=== PATIENT | male | born 1955 | race Caucasian/White ===

== ENCOUNTER 2017-12-23 10:22 | Day surgery (SDC) | payer OTHER ==
[2017-12-23] MEDS: MOXIFLOXACIN 0.5% 3 ML OPH OPER (08:00)
[2017-12-23] MEDS: NEPAFENAC 0.1% 3 ML OPH OPER (11:17)
[2017-12-23] MEDS: PHENYLephrine 10% 5 ML OPH OPER (11:17)
[2017-12-23] MEDS ORDERED: LIDOCAINE 1% (MPF) 10 ML INJ (11:54)
[2017-12-23] MEDS ORDERED: TIMOLOL 0.5% 5 ML OPH (11:54)
[2017-12-23] MEDS ORDERED: EPINEPHrine 1 MG INJ (11:54)
[2017-12-23] MEDS ORDERED: BUPIVACAINE 0.75%/DEXT (SPINAL) 2 ML INJ (11:54)
[2017-12-23] MEDS ORDERED: SODIUM BICARBONATE (IV ADD) 50 ML (11:54)
[2017-12-23] MEDS ORDERED: LIDOCAINE 2% (SDV) 5 ML INJ (11:55)
[2017-12-23 11:58] LABS: ALANINE AMINOTRANSFERASE 22 IU/L (13-69); ALBUMIN 4.8 g/dl (3.3-4.9); ALBUMIN/GLOBULIN RATIO 1.65; ALKALINE PHOSPHATASE 51 IU/L (42-121); ANION GAP 20 (8-16); ASPARTATE AMINO TRANSFERASE 33 IU/L (15-46); BILIRUBIN,INDIRECT 0.9 mg/dl (0-1.1); BILIRUBIN,TOTAL 0.9 mg/dl (0.2-1.3); CARBON DIOXIDE 24 mmol/L (21-31); CHLORIDE 107 mmol/L (97-110); GLUCOSE 81 mg/dl (70-220); TOTAL PROTEIN 7.7 g/dl (6.1-8.1)
[2017-12-23 12:04] LABS: BLOOD UREA NITROGEN 18 mg/dl (7-20); CALCIUM 8.9 mg/dl (8.4-10.2); CREATININE 0.83 mg/dl (0.61-1.24); SODIUM 147 mmol/L (135-144)
[2017-12-23] MEDS ORDERED: PILOCARPINE 4% 15ML OPH BOTH EYES (12:30)
[2017-12-23] MEDS ORDERED: TETRACAINE 0.5% 4 ML OPH (12:59)
[2017-12-23] MEDS ORDERED: PHENYLephrine 10% 5 ML OPH (12:59)
[2017-12-23] MEDS: PHENYLephrine 10% 5 ML OPH RIGHT EYE (13:00)
[2017-12-23] MEDS: TETRACAINE 0.5% 4 ML OPH RIGHT EYE (13:00)
[2017-12-23] MEDS ORDERED: PROPOFOL 20 ML (13:07)
[2017-12-23] MEDS: LIDOCAINE 2% (SDV) 5 ML INJ INJ (13:10)
[2017-12-23] MEDS: NA BICARB 50 MEQ/50 ML VIAL INJ (13:10)
[2017-12-23] MEDS: TIMOLOL 0.5% 5 ML OPH RIGHT EYE (13:51)
[2017-12-23] MEDS ORDERED: HYDROmorphONE (0.2 MG/ML) 10ML SYG IV (14:08)
[2017-12-23] MEDS ORDERED: hydrALAzine 20 MG INJ (14:12)
[2017-12-23] MEDS: HYDROmorphONE (0.2 MG/ML) 10ML SYG IV (14:57)
[2017-12-23] MEDS: hydrALAzine 20 MG INJ IV (14:57)
== END 2017-12-23 15:30 | disposition home or self-care (01) ==
LOC: SDS 10:22
DX: H27.01 Aphakia, right eye (principal); E78.5 Hyperlipidemia, unspecified; R73.03 Prediabetes
CPT/HCPCS: 66985; 80053; 93005